=== PATIENT | male | born 1965 | race Hispanic/Latino ===

== ENCOUNTER 2018-08-10 08:38 | Inpatient (IN) | payer OTHER ==
[~2018-08-10] VITALS: Ht 167.6 cm; Wt 150.8 kg
[~2018-08-10 08:38] MED LIST: AMOXIL 875 MG875 MG PO; AUGMENTIN 875 M1 TAB PO; DELTASONE20 MG PO; DOXYCYCLINE HY100 M2 PO; FLEXERIL10 MG PO; HYDROXYZINE HCL50 M1 PO; MOTRIN 600 MG600 MG PO; MOTRIN 800MG T800 MG PO; PERCOCET 325 MG1 TA2 PO; TRAMADOL50 MG PO; ULTRAM(MONOGRAP50 MG PO; VICODIN HP 3001 TAB PO
--- NOTE | 2018-08-10 09:02 | CT SCAN REPORT ---
EXAMINATION: CT HEAD WITHOUT CONTRAST CLINICAL INFORMATION: Weakness. Facial droop. Concern for stroke. COMPARISON: 06/11/2013. TECHNIQUE: Contiguous helical images of the brain were obtained without IV contrast. Multiplanar reconstructions were performed. DLP: 646 mGy-cm. FINDINGS: There are no pathologic extra-axial fluid collections. The lateral, third, fourth ventricles are nondilated and concordant with the appearance of the sulci. There is no evidence for acute intraparenchymal hemorrhage or infarct. There is neither mass nor mass effect. There is no shift of midline structures. The paranasal sinuses and mastoid air cells are clear. There are no osseous lesions. IMPRESSION: No evidence for acute intracranial injury. The aforementioned was communicated to Dr. Raymundo at 0858 hours.
[2018-08-10 09:14] LABS: ABSOLUTE BASOPHIL COUNT 0 /CUMM (0.0-0.2); ABSOLUTE EOSINOPHIL COUNT 0 /CUMM (0.0-0.7); ABSOLUTE GRANULOCYTE CT 5.7 /CUMM (1.4-6.5); ABSOLUTE LYMPH COUNT 1.3 /CUMM (1.2-3.4); ABSOLUTE MONOCYTE COUNT 0.4 /CUMM (0.10-0.60); BASOPHIL % 0.1 % (0.0-2.0); EOSINOPHIL % 0.5 % (0-5); GRANULOCYTE % 76.5 % (42.2-75.2); HEMATOCRIT 44.4 % (42-52); MEAN CORPUSCULAR HGB 29.2 PG (27.0-31.0); MEAN CORPUSCULAR HGB CONC 33.1 G/DL (33.0-37.0); MEAN CORPUSCULAR VOLUME 88.2 FL (80.0-94.0); MEAN PLATELET VOLUME 9.3 FL (7.4-10.4); PLATELET COUNT 249 /CUMM (130-400); RBC DISTRIBUTION WIDTH 13.3 % (11.5-14.5); RED BLOOD CELL CT 5.04 /CUMM (4.70-6.10); WHITE BLOOD CELL COUNT 7.4 /CUMM (4.8-10.8)
--- NOTE | 2018-08-10 09:14 | ED GENERAL ADULT ---
See Addendum History of Present Illness General Chief Complaint: Neuro Symptoms/ Deficit Stated Complaint: BIBA NEURO DEFICITS Source: patient, EMS Exam Limitations: clinical condition Vital Signs & Intake/Output Vital Signs & Intake/Output Vital Signs Date Time Temp Pulse Resp B/P B/P Pulse O2 O2 Flow FiO2 Mean Ox Delivery Rate 08/10 947 97.0 86 18 127/65 99 Room Air 08/10 0902 100 Nasal 2.0L Cannula 08/10 0855 97.7 118 18 120/58 98 Room Air Allergies Coded Allergies: NO KNOWN ALLERGIES (01/21/16) Reconcile Medications Doxycycline Hyclate 100 MG CAPSULE 1 CAP PO BID TICK BITE Triage Note: 53 Y/O MALE BIBA FROM HOME, ON STROKE ALERT. PER EMS, PT WAS LAST SEEN "NORMAL" AT 0300; WENT TO [employer] AT ? 0500 AND "WAS NORMAL". GOT HOME AND CALLED 911 DUE TO SLURRED SPEECH AND R SIDED FACIAL DROOP. PRE [facility] FINGERSTICK 116. ARRIVES IN CT SCAN WITH SLURRED SPEECH STILL NOTED. SLIGHT FACIAL DROOP. ABLE TO MOVE ALL EXTREMITIES AND RESIST GRAVITY. ONLY C/O PAIN. ADMITS TO ETOH AND MARIJUANA USE LAST EVENING, BREATHALIZED AT 0.035. MD REMAINS AT BEDSIDE Triage Nurses Notes Reviewed? yes HPI: 53-year-old male presents via EMS for right-sided weakness and difficulty speaking. Less sometime well was 5 AM this morning when he went to [employer]. Daughter found him at 7 AM with aforementioned complaints and called EMS. Negative history of spinal or intracranial surgery. Does not take anticoagulants. Past History Travel History Traveled to [place] past 21 day No Medical History Any Pertinent Medical History? see below for history Neurological: NONE EENT: NONE Cardiovascular: ENLARGED HEART RIGHT BBB Respiratory: NONE Gastrointestinal: NONE Hepatic: NONE Renal: NONE Musculoskeletal: NONE Psychiatric: NONE Endocrine: NONE Blood Disorders: NONE Cancer(s): NONE LABORATORY VETERINARIAN/Reproductive: NONE Surgical History Surgical History: non-contributory Psychosocial History What is your primary language Angolan Tobacco Use: Quit >30 days ago Family History Hx Contributory? No Review of Systems Review of Systems Constitutional: Reports: no symptoms, see HPI. EENTM: Reports: no symptoms. Respiratory: Reports: no symptoms. Cardiovascular: Reports: no symptoms. GI: Reports: no symptoms. Genitourinary: Reports: no symptoms. Musculoskeletal: Reports: no symptoms. Skin: Reports: no symptoms. Neurological/Psychological: Reports: no symptoms. Hematologic/Endocrine: Reports: no symptoms. Immunologic/Allergic: Reports: no symptoms. All Other Systems: Reviewed and Negative Physical Exam Physical Exam General Appearance: no apparent distress Comments: Gen.: Well-nourished, well-developed, no acute respiratory distress. Head: Normocephalic, atraumatic. Eyes: Normal inspection bilaterally, PERRLA, EOMI Ears: Normal inspection bilaterally Nose: Normal inspection Throat/mouth : Moist mucosa Neck: Supple, full range of motion, no goiter, equal carotid pulses, no carotid bruits Heart: Regular rate and rhythm, no murmurs rubs or gallops Lungs: Clear to auscultation bilaterally with normal air entry Chest: Nontender Back: Normal range of motion Abdomen: Soft, nontender, nondistended, normal bowel sounds Extremities: Normal range of motion grossly, equal radial pulses, no cyanosis clubbing or edema Neurologic: Right lower facial droop with intact forehead wrinkling, positive for aphasia and dysarthria, negative cerebellar signs, intact sensation, intact deep tendon reflexes and muscle strength that is symmetric. Skin: warm and dry Psychiatric: Calm, cooperative Core Measures ACS in differential dx? No CVA/TIA Diagnosis: Yes NIH Stroke Scale (24 Hours) NIH Stroke Scale (24 Hours) Response Value Level of Consciousness alert 0 LOC Questions answers one correctly 1 LOC Commands obeys both correctly 0 Best Gaze normal 0 Visual Das no visual loss 0 Facial Paresis minor 1 Motor Arm - Left no drift 0 Motor Arm - Right no drift 0 Motor Leg - Left no drift 0 Motor Leg - Right no drift 0 Limb Ataxia no ataxia 0 Sensory normal 0 Best Language mild to moderate aphasia 1 Dysarthria mild/mod slurring words 1 Extinction and Inattention no neglect 0 Total 4 Date Last Known Well: 08/10/18 Time Last Known Well: 0500 tPA Risk/Benefit discussion I have discussed the risks, benefits, and alternatives of Alteplase treatment including: - If given promptly, can resolve or have major improvement in stroke symptoms. - Bleeding (hemorrhage) is the most common risk that can occur. - Bleeding may occur into the brain and cause~computing systems mechanic serious disability~ including - this is rare, affecting about 1% of patients. - Alternative treatments with proven benefit for patients with stroke include aspirin and care in a specialized unit where staff members pay careful attention to a variety of basic aspects of care. tPA given? No Reason tPA not given Medication Refused Sepsis Present: No Sepsis Focused Exam Completed? No Progress Differential Diagnoses I considered the following diagnoses in my evaluation of the patient: CVA versus TIA Plan of Care: Orders Procedure Date/time Status Nothing by Mouth 08/10 L Active Patient Data 08/10 1023 Active Add-on Test (ER Only) 08/10 1002 Active URINE DRUGS OF ABUSE 08/10 0942 Active Add-on Test (ER Only) 08/10 0911 Active TROPONIN LEVEL 08/10 901 Complete ETHANOL 08/[address] NECK ANGIOGRAM 08/[address] HEAD ANGIOGRAM 08/10 901 Active Saline Lock 08/10 840 Active URINALYSIS 08/10 840 Active PARTIAL THROMBOPLASTIN TIME 08/10 840 Complete PROTHROMBIN TIME 08/10 08 Complete COMPREHENSIVE METABOLIC PANEL 08/10 840 Complete CBC WITHOUT DIFFERENTIAL 08/10 840 Complete EKG 08/10 840 Active Current Medications Sig/Kevin Start time Last Medication Dose Stop Time Status Admin Alteplase, 0 ONCE ONE 08/10 900 UNVr Recombinant 08/10 901 (Activase 100 MG Inj) Potassium Chloride 20 MEQ .Q6H40M 08/10 900 UNVr (KCl 20MEQ in D5W NS 1000ML) Dextrose/Sodium 1,000 ML Chloride (D5-Normal Saline) Laboratory Tests 08/10/18 09: Anion Gap 13, Estimated GFR > 60, BUN/Creatinine Ratio 14.0, Glucose 156 H, Calcium 9.4, Total Bilirubin 0.7, AST 47, ALT 58, Alkaline Phosphatase 36, Troponin I < 0.01, Total Protein 7.1, Albumin 4.2, Globulin 2.9, Albumin/ Globulin Ratio 1.4, PT 13.1 H, INR 1.20 H, APTT 37, CBC w Diff NO MAN DIFF REQ , RBC 5.04, MCV 88.2, MCH 29.2, MCHC 33.1, RDW 13.3, MPV 9.3, Gran % 76.5 H, Lymphocytes % 17.3 L, Monocytes % 5.6, Eosinophils % 0.5, Basophils % 0.1, Absolute Granulocytes 5.7, Absolute Lymphocytes 1.3, Absolute Monocytes 0.4, Absolute Eosinophils 0, Absolute Basophils 0, Serum Alcohol 42.0 Initial ED EKG: Regular rhythm of 89 with LBBB. Normal axis. Discordance present. Sgarbossa criteria negative. No prior ECG for comparison. Comments: Spoke with the patient regarding TPA given risk and benefits. Patient declined tPA at this time stating that he thinks it is due to him drinking some alcohol last night. Breathalyzer was 0.036. 0945: Aphasia improvement. Departure Departure Disposition: STILL A PATIENT Condition: Stable Clinical Impression Primary Impression: Aphasia Secondary Impressions: Facial droop, LBBB (left bundle branch block) Referrals: Lindsay Alexandre APRN (PCP/Family) Departure Forms: Customer Survey General Discharge Information Critical Care Note Critical Care Note Critical Care Time: 30-74 min
[2018-08-10 09:28] LABS: PT 13.1 SEC (9.4-12.5); PTT 37 SEC (25-37)
--- NOTE | 2018-08-10 10:09 | RADIOLOGY REPORT ---
EXAMINATION: CHEST 1 VIEW CLINICAL INFORMATION: Weakness, facial droop. COMPARISON: 03/15/2015. TECHNIQUE: An AP view of the chest is provided. FINDINGS: The cardiac silhouette is prominent, though stable. The mediastinal and hilar contours are unremarkable. There are neither pleural effusions nor pneumothoraces. There are no consolidations. The osseous structures are stable. IMPRESSION: No evidence for acute disease.
--- NOTE | 2018-08-10 10:31 | CT SCAN REPORT ---
EXAMINATION: CT ANGIOGRAM OF THE HEAD CT ANGIOGRAM OF THE NECK CLINICAL INFORMATION: Aphasia and dysarthria. Right facial droop. COMPARISON: CT scan of the head earlier 08/10/2018. TECHNIQUE: Test bolus series followed by intravenous administration 90 mL of Optiray 320. Helical imaging was performed in the axial plane from the mediastinum to the skull vertex. A post contrast CT head was obtained. The degree of stenosis is based off NASCET criteria. The data was processed at the geodetic surveyor technologist workstation for generation of MIP images. Three-dimensional volume rendered reformatted images were also generated at an offline 3-D workstation. Imaging is suboptimal due to patient body habitus and motion. DLP: 1932.3 mGy-cm FINDINGS: CT Head: There is no evidence of acute intracranial hemorrhage or territorial infarction. No abnormal mass-effect or midline shift is seen. Sanchez to white matter differentiation is well preserved. No extra-axial fluid collections are identified. There is no abnormal enhancement. The ventricles are normal in size. There is no abnormal attenuation within the brain parenchyma. The osseous structures and soft tissues are normal. The mastoid air cells and visualized portions of the paranasal sinuses are well-aerated. CTA Neck: There is a common origin of the left common carotid and brachiocephalic arteries, a normal variant. The great vessels of the neck are widely patent. The subclavian arteries appear normal bilaterally. The common carotid arteries have normal caliber. The carotid bifurcations bilaterally appear normal. The internal carotid arteries in the neck bilaterally have uniform and normal caliber. The origins of both vertebral arteries are well seen and appear normal. Both vertebral arteries are widely patent and demonstrate good opacification throughout their cervical course. The left vertebral artery is slightly dominant. Nonvascular: There is no cervical lymphadenopathy. The thyroid gland appears normal. Accounting for artifact, the visualized upper lung zones are well-aerated. There are mild spondylitic changes in the cervical spine. Assessment of the cervical spine caudad to the level of C5 is suboptimal due to extensive beam hardening artifact from the patient's body habitus. The left mandibular third molar tooth is horizontally unerupted, but does not appear to be impacted. CTA Head: In the anterior circulation, the distal internal carotid arteries within the neck appear normal. The intracranial internal carotid arteries and their bifurcations appear normal. The M1 segment of the left middle cerebral artery is widely patent. There is mild irregularity of the distal sylvian left middle cerebral artery, but no occlusion is demonstrated. The right middle and bilateral anterior cerebral arteries demonstrate normal caliber with no evidence of focal stenosis, aneurysm or vascular malformation. The anterior communicating artery is normal. In the posterior circulation, the left vertebral artery is dominant. The vertebral arteries intradurally have normal caliber. The basilar artery appears normal. The posterior cerebral arteries have normal caliber. The venous sinuses opacify normally. IMPRESSION: 1. There are no acute bleeds or territorial infarcts. There are no masses or areas of abnormal enhancement. 2. CTA of the neck is unremarkable. 3. There appears to be mild irregularity of the distal sylvian branch of the left multiple cerebral artery, without vessel occlusion. 4. This critical result was discussed with Dorian Raymundo by telephone on 08/10/2018 at 10:15 AM and it was ascertained that the content and urgency of the report was understood at the time of direct communication.
--- NOTE | 2018-08-10 10:36 | History & Physical ---
Darian Velasco MDapna 08/10/18 1036: General Information and HPI MD Statement: I have seen and personally examined THERESA KATZ and documented this H&P. The patient is a 53 year old M who presented with a patient stated chief complaint of [right sided weakness and slurring of speech]. Source of Information: patient Exam Limitations: no limitations History of Present Illness: 53-year-old gentleman with no past medical history alcohol use for the past 2 months was brought in by EMS with complaints of right upper arm weakness with slurring of speech. Apparently patient was in usual state of health until Sunday. 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 He was unable to sleep. At around 5:00 AM he went to [employer] and had croissant and coffee and came home. He during that time he did not have any weakness or regurgitation of food. When he went to the bathroom, he felt that his right arm felt very weak and unable to get words out of his mouth. He managed to go to his living room and sat on the couch. He still felt that he was having slurring of speech and hence he signaled his daughter about the same symptoms. Immediately his came by and found him aphasic and unable to use the right arm and hence called EMS. Stroke alert was called and the EMS TECH found that he had a right angle of mouth deviation. Patient came to [place] [facility] and found that he did not have any more numbness/weakness. He was able to articulate and use his right arm. CAT scan was done which was negative for any bleed and since he came within the TPA window he was offered TPA but patient refused given the side effects and felt that was also to be secondary due to his alcohol use. Patient has never smoked cigarettes or used alcohol in the past. But he started drinking beer 3-4 at least 4 times a week for the past 2 months due to stress both at work and home. He is also trying to cut down on his calories and do physical activity to help with this weight loss. Otherwise patient follows with his primary care physician which she saw her 7 months ago for routine blood work. During that time he found to have elevated cholesterol but was never prescribed any medication. He also saw Dr. Mccain is a routine follow-up for his EKG finding of left bundle branch block. Allergies/Medications Allergies: Coded Allergies: NO KNOWN ALLERGIES (01/21/16) Home Med list Doxycycline Hyclate 100 MG CAPSULE 1 CAP PO BID TICK BITE Compliance With Home Meds: GOOD Past History Travel History Traveled to [place] past 21 day No Medical History Neurological: NONE EENT: NONE Cardiovascular: ENLARGED HEART RIGHT BBB Respiratory: NONE Gastrointestinal: NONE Hepatic: NONE Renal: NONE Musculoskeletal: NONE Psychiatric: NONE Endocrine: NONE Blood Disorders: NONE Cancer(s): NONE MANAGED CARE PROVIDER/Reproductive: NONE Surgical History Surgical History: non-contributory Past Family/Social History Family History Relations & Conditions if any Relation not specified for: *No pertinent family history Psychosocial History Where do you live? Home Who Do You Live With? spouse Services at Home: None Primary Language: Swedish Smoking Status: Never Smoked ETOH Use: heavy use Functional Ability ADLs Independent: dressing, eating, toileting, bathing. Ambulation: independent IADLs Independent: shopping, housework, finances, food prep, telephone, transportation , medication admin. Review of Systems Review of Systems Constitutional: Reports: no symptoms. Cardiovascular: Reports: no symptoms. Respiratory: Reports: no symptoms. GI: Reports: no symptoms. Genitourinary: Reports: no symptoms. Musculoskeletal: Reports: no symptoms. Skin: Reports: no symptoms. Neurological/Psychological: Reports: numbness, paresthesia (weakness rt arm). Exam & Diagnostic Data Last 24 Hrs of Vital Signs/I&O Vital Signs Date Time Temp Pulse Resp B/P B/P Pulse O2 O2 Flow FiO2 Mean Ox Delivery Rate 08/10 1135 98.2 82 18 136/70 98 08/10 1035 83 16 127/58 93 Nasal 2.0L Cannula 08/10 0947 97.0 86 18 127/65 99 Room Air 08/10 0902 100 Nasal 2.0L Cannula 08/10 0855 97.7 118 18 120/58 98 Room Air Intake & Output 08/10 1600 08/10 0800 08/10 0000 Intake Total Output Total Balance Patient 336 lb Weight Weight Bed scale Measurement Method Physical Exam General Appearance Alert, Oriented X3, Cooperative, No Acute Distress Cardiovascular Regular Rate, Normal S1, Normal S2, No Murmurs Lungs Clear to Auscultation Abdomen Soft, No Tenderness, No Hepatospenomegaly Neurological Normal Speech, Strength at 5/5 X4 Ext, Normal Tone, Sensation Intact, Cranial Nerves 3-12 NL Extremities No Cyanosis, No Edema, Normal Pulses Vascular Normal Pulses Last 24 Hrs of Labs/Robert: Laboratory Tests 08/10/18 1135: Methadone Screen Pending, Barbiturate Screen Pending, Ur Phencyclidine Scrn Pending, Amphetamines Screen Pending, U Benzodiazepines Scrn Pending, Urine Cocaine Screen Pending, Urine Cannabis Screen Pending, Urine Color Pending, Urine Clarity Pending, Urine pH Pending, Ur Specific [place] Pending, Urine Protein Pending, Urine Ketones Pending, Urine Nitrite Pending, Urine Bilirubin Pending, Urine Urobilinogen Pending, Ur Leukocyte Esterase Pending, Ur Microscopic Pending, Urine Hemoglobin Pending, Urine Glucose Pending 08/10/18 1040: Troponin I < 0.01 08/10/18 0901: Anion Gap 13, Estimated GFR > 60, BUN/Creatinine Ratio 14.0, Glucose 156 H, Calcium 9.4, Total Bilirubin 0.7, AST 47, ALT 58, Alkaline Phosphatase 36, Troponin I < 0.01, Total Protein 7.1, Albumin 4.2, Globulin 2.9, Albumin/ Globulin Ratio 1.4, Triglycerides Pending, Cholesterol Pending, LDL Cholesterol, Calc Pending, HDL Cholesterol Pending, Cholesterol/HDL Ratio Pending, TSH Pending, Free T4 Pending, Total T3 Pending, PT 13.1 H, INR 1.20 H, APTT 37, CBC w Diff NO MAN DIFF REQ, RBC 5.04, MCV 88.2, MCH 29.2, MCHC 33.1, RDW 13.3, MPV 9.3, Gran % 76.5 H, Lymphocytes % 17.3 L, Monocytes % 5.6, Eosinophils % 0.5, Basophils % 0.1, Absolute Granulocytes 5.7, Absolute Lymphocytes 1.3, Absolute Monocytes 0.4, Absolute Eosinophils 0, Absolute Basophils 0, Serum Alcohol 42.0 Assessment/Plan Assessment: 53-year-old gentleman with past medical history alcohol abuse/marijuana use was brought in was brought into [facility] by EMS with complaints of slurring of speech and right-sided facial droop at around 5 AM. Vital signs Temperature 97, pulse rate 83, respiratory rate 16, blood pressure 127/58, Saturation 93 on 2 L of oxygen. Patient now on room air upon interview. Admission labs WBC 7.4, hemoglobin 14.7, platelet count 249, sodium 141, potassium 4.2, creatinine 1, glucose 156, total bilirubin 0.7, troponin 0 0.01, INR 1.20 Imaging Chest x-ray-no acute disease Noncontrast head CT No evidence for acute intracranial injury. Head CTA/neck CTA 1. There are no acute bleeds or territorial infarcts. There are no masses or areas of abnormal enhancement. 2. CTA of the neck is unremarkable. 3. There appears to be mild irregularity of the distal sylvian branch of the left multiple cerebral artery, without vessel occlusion. ED treatment Narco 0.4 mg IV, IV KCl 20 mEq Patient complaint of chest pain and suddenly passed out. Patient was given Narcan by the ED physician. A new set of EKG and troponins were sent. Patient refused alteplase despite understanding the risk and benefits. Assessment and plan 1. TIA * Admit in telemetry * Neuro check every 2 * Vitals every shift * Appreciate neurology follow-up * Aspirin 325 once followed by aspirin 81 daily * Atorvastatin 80 mg daily * Echocardiogram to look for any chronic left ventricular hypertrophy * Lipid panel, HbA1c, TSH * Unsure if he needs MRI of the head. We will consult with neurology. * Patient able to swallow water at bedside. We will given some diet. 2. Alcohol abuse * Most likely patient might have withdrawal symptoms. * We will put him on CIWA * Ativan 1 mg nightly as needed IV * Thiamine, folic acid p.o. 3. Morbid obesity * We will check lipid panel and HbA1c. * Advised balanced diet and if needed and nutrition consult as an outpatient. 4. EKG finding of left bundle branch block * Patient has a history of EKG showing left bundle branch block. * We will follow with 3 sets of troponin given his one episode of chest pressure. * At this point there is no need for any cardiology consult. Code-Full code Diet-heart healthy diet DVT prophylaxis-subcu Lovenox As Ranked By This Provider Problem List: 1. TIA (transient ischemic attack) Core Measures/Misc (08/05) Acute Coronary Syndrome ACS Diagnosis: No Congestive Heart Failure Congestive Heart Failure Diagnosis No Cerebrovascular Accident CVA/TIA Diagnosis: Yes NIH Stroke Scale: Total 0 Date Last Known Well: 08/10/18 Time Last Known Well: 0500 Symptom Start Date: 08/10/18 Symptom Start Time: 0500 tPA Risk/Benefit discussion I have discussed the risks, benefits, and alternatives of Alteplase treatment including: - If given promptly, can resolve or have major improvement in stroke symptoms. - Bleeding (hemorrhage) is the most common risk that can occur. - Bleeding may occur into the brain and cause~bed bug exterminator serious disability~ including - this is rare, affecting about 1% of patients. - Alternative treatments with proven benefit for patients with stroke include aspirin and care in a specialized unit where staff members pay careful attention to a variety of basic aspects of care. tPA given? No Reason tPA not ordered Medication Refused Swallow Evaluation Pass Current/Past Hx AFib/AFlutter No VTE (View Protocol) VTE Risk Factors Age>40 No Mechanical VTE Prophylaxis d/t Other No VTE Pharm Prophylaxis d/t Other Sepsis (View protocol) Sepsis Present: No If YES complete Sepsis Event Note If YES complete Sepsis Event Note [facility] 5678: Core Measures/Misc (08/05) Sepsis (View protocol) If YES complete Sepsis Event Note If YES complete Sepsis Event Note Attending MD Review Statement Attending Statement Attending MD Statement: examined this patient, discuss w/resident/PA/PAVING RAMMER, agreed w/resident/PA/PAVING RAMMER, discussed with family, reviewed EMR data (avail), discussed with nursing Attending Assessment/Plan: Mr. Katz is a 53-year-old man with hyperlipidemia who was sent to ED after having an episode of word finding difficulties and possible right upper extremity weakness. IN ED, pt refused tPA. Ultimately, his symptoms resolved spontaneously. Non smoker, no prior history of TIA or stroke. CT head negative. --cont to observe on tele --f/u baseline labs
--- NOTE | 2018-08-10 13:35 | Cons- Neurology ---
General Information and HPI Consulting Request Date of Consult: 08/10/18 Requested By: Boston Bustamante MD History of Present Illness: 53-year-old male with essentially negative past medical history apart from reported hyperlipidemia which is untreated, presented to the emergency department this morning following an episode of word finding difficulties and possible right upper extremity weakness. He presented in the window for TPA however refused this treatment. Ultimately, his symptoms resolved spontaneously. He denies prior history of TIA or stroke. He is a non-smoker. Allergies/Medications Allergies: Coded Allergies: NO KNOWN ALLERGIES (01/21/16) Home Med List: Doxycycline Hyclate 100 MG CAPSULE 1 CAP PO BID TICK BITE Review of Systems Review of Systems: negative for trauma, fever, chest pain, palpitations, vomiting, vertigo, joint inflammation or abnormal bleeding Past History Travel History Traveled to [place] past 21 day No Medical History Neurological: NONE EENT: NONE Cardiovascular: ENLARGED HEART RIGHT BBB Respiratory: NONE Gastrointestinal: NONE Hepatic: NONE Renal: NONE Musculoskeletal: NONE Psychiatric: NONE Endocrine: NONE Blood Disorders: NONE Cancer(s): NONE CENTRAL PROCESSING TECH/Reproductive: NONE Surgical History Surgical History: non-contributory Family History Relations & Conditions If Any: Relation not specified for: *No pertinent family history Psychosocial History Where Do You Live? Home Who Do You Live With? spouse Services at Home: None Primary Language: Gabonese Smoking Status: Never Smoked ETOH Use: heavy use Functional Ability ADLs Independent: dressing, eating, toileting, bathing. Ambulation: independent IADLs Independent: shopping, housework, finances, food prep, telephone, transportation , medication admin. Exam & Diagnostic Data Vital Signs and I&O Vital Signs Date Time Temp Pulse Resp B/P B/P Pulse O2 O2 Flow FiO2 Mean Ox Delivery Rate 08/10 1248 98.3 90 17 132/60 98 08/10 1135 98.2 82 18 136/70 98 08/10 1035 83 16 127/58 93 Nasal 2.0L Cannula 08/10 0947 97.0 86 18 127/65 99 Room Air 08/10 0902 100 Nasal 2.0L Cannula 08/10 0855 97.7 118 18 120/58 98 Room Air Intake & Output 08/10 1600 08/10 0800 08/10 0000 Intake Total Output Total Balance Patient 336 lb Weight Weight Bed scale Measurement Method Middle-aged male in no acute distress. Head was normocephalic and atraumatic. He was awake, alert and cooperative. He was able to follow simple commands. Speech was fluent. There was no anomia. Pupils were equal and reactive. Extraocular movements were full. There was no nystagmus. There was no field cut. Face was symmetric. Hearing was normal. Tongue was midline. The motor examination showed no drift of the upper extremities. There was no focal or lateralizing weakness. Deep tendon reflexes were symmetric. Plantar responses were flexor. Sensory examination was normal to light touch with double simultaneous stimulation. There was no ataxia on finger to nose testing. Gait was not evaluated. Assessment/Plan Assessment: Left hemispheric TIA. Obesity Reported hyperlipidemia CT and CTA negative Recommendations: Observe on telemetry ASA Lipid panel Atorvastatin Echocardiogram May be OOB Please call with any questions. Consult Acknowledgment - Thank you for your consult request.
[2018-08-10 13:50] VITALS: BP 138/84
--- NOTE | 2018-08-10 22:38 | Admission Certification ---
Admission Certification Certification Statement - As attending physician, I certify that at the time of - admission, based on clinical presentation, severity of - symptoms, need for further diagnostic testing and - therapeutic interventions, and risk of adverse outcomes - without in-hospital treatment, in my clinical assessment, - this patient requires an acute hospital stay for a minimum - of two nights or longer. I have also considered psychsocial - factors such as support system, advanced age, financial - issues, cognitive issues, and failed out-patient treatments, - past re-admission history, safety of patient, and lack of - compliance as applicable. Specific rationale supporting this admission is: TIA
[2018-08-10 23:14] VITALS: BP 138/78
[2018-08-11 06:45] VITALS: BP 125/60
--- NOTE | 2018-08-11 08:12 | PN- Housestaff ---
Rod WOLFE,Gaby 08/11/18 0811: Subjective Follow-up For: TIA Complaints: no complaints Subjective: Patient seen and examined at bedside no overnight events. Patient says he is working with a speech by trying to sing songs. He is eager to know when he will regain his strength back. He denies dizziness, weakness, chest pain, palpitation, fall. Review of Systems Constitutional: Reports: no symptoms. Objective Last 24 Hrs of Vital Signs/I&O Vital Signs Date Time Temp Pulse Resp B/P B/P Pulse O2 O2 Flow FiO2 Mean Ox Delivery Rate 08/11 0645 98.8 71 20 125/60 94 Room Air 08/11 0000 Nasal 2.0L Cannula 08/10 2314 98.2 67 16 138/78 92 Room Air 08/10 1400 97 Nasal 2.0L Cannula 08/10 1350 98.4 82 20 138/84 95 Nasal Cannula 08/10 1248 98.3 90 17 132/60 98 08/10 1135 98.2 82 18 136/70 98 08/10 1035 83 16 127/58 93 Nasal 2.0L Cannula 08/10 0947 97.0 86 18 127/65 99 Room Air 08/10 0902 100 Nasal 2.0L Cannula 08/10 0855 97.7 118 18 120/58 98 Room Air Intake & Output 08/11 1600 08/11 0800 08/11 0000 Intake Total 120 120 Output Total Balance 120 120 Intake, Oral 120 120 Patient 335 lb Weight Physical Exam General Appearance: Alert, Oriented X3, Cooperative, No Acute Distress Cardiovascular: Regular Rate, Normal S1, Normal S2, No Murmurs Lungs: Clear to Auscultation Abdomen: Soft, No Tenderness, No Hepatospenomegaly Neurological: Normal Speech, Strength at 5/5 X4 Ext, Normal Tone, Sensation Intact, Cranial Nerves 3-12 NL Other Physical Findings: Slow speech Current Medications: Current Medications Sig/Kevin Start time Last Medication Dose Route Stop Time Status Admin Acetaminophen 650 MG Q6P PRN 08/10 1230 AC 08/10 PO 1535 Alteplase, 0 ONCE ONE 08/10 900 DC Recombinant IV 08/10 0901 Aspirin 81 MG DAILY 08/11 900 AC PO Aspirin 0 .STK-MED ONE 08/10 1132 DC PO Aspirin 325 MG ONCE ONE 08/10 1115 DC PO 08/10 1116 Atorvastatin Calcium 80 MG 1700 08/10 1700 AC 08/10 PO 1535 Enoxaparin Sodium 40 MG DAILY 08/10 1744 AC 08/10 SC 2019 Folic Acid 1 MG DAILY 08/10 1218 AC 08/10 PO 1535 Furosemide 40 MG 7:30 AM, & 4:30 PM 08/11 0730 AC IV Hydromorphone HCl 0.5 MG Q4 PRN 08/10 1230 AC IV Lorazepam 0 Q1P PRN 08/10 1230 AC IV Metolazone 5 MG DAILY 08/11 0900 AC PO Naloxone HCl 0.4 MG ONCE ONE 08/10 1045 DC 08/10 IV 08/10 1046 1042 Naloxone HCl 0 .STK-MED ONE 08/10 1040 DC .ROUTE Nimodipine 60 MG Q4H 08/10 1215 DC PO Oxycodone HCl 5 MG Q6 PRN 08/10 1230 AC PO Potassium Chloride 20 MEQ .Q6H40M 08/10 0900 DC Dextrose/Sodium 1,000 ML IV Chloride Thiamine HCl 50 MG DAILY 08/10 1218 AC 08/10 PO 1535 Last 24 Hrs of Lab/Robert Results Last 24 Hrs of Labs/Mics: Laboratory Tests 08/11/18 0635: Sodium Pending, Potassium Pending, Chloride Pending, Carbon Dioxide Pending, Anion Gap Pending, BUN Pending, Creatinine Pending, BUN/Creatinine Ratio Pending , Magnesium Pending, CBC w Diff Pending, WBC Pending, RBC Pending, Hgb Pending, Hct Pending, MCV Pending, MCH Pending, MCHC Pending, RDW Pending, Plt Count Pending, MPV Pending 08/10/18 1940: Troponin I < 0.01 08/10/18 1135: Urine Opiates Screen < 100, Methadone Screen < 40, Barbiturate Screen < 60, Ur Phencyclidine Scrn < 6.00, Amphetamines Screen < 100, U Benzodiazepines Scrn < 85, Urine Cocaine Screen < 50, Urine Cannabis Screen 13.40, Urine Color STRAW, Urine Clarity CLEAR, Urine pH 6.0, Ur Specific O[place]e 1.010, Urine Protein NEG, Urine Ketones NEG, Urine Nitrite NEG, Urine Bilirubin NEG, Urine Urobilinogen 0.2, Ur Leukocyte Esterase NEG, Ur Microscopic EXAM NOT REQUIRED, Urine Hemoglobin NEG, Urine Glucose NEG 08/10/18 1040: Troponin I < 0.01 08/10/18 0901: Anion Gap 13, Estimated GFR > 60, BUN/Creatinine Ratio 14.0, Glucose 156 H, Hemoglobin A1c Pending, Calcium 9.4, Total Bilirubin 0.7, AST 47, ALT 58, Alkaline Phosphatase 36, Troponin I < 0.01, Total Protein 7.1, Albumin 4.2, Globulin 2.9, Albumin/Globulin Ratio 1.4, Triglycerides 138, Cholesterol 172, LDL Cholesterol, Calc 109, HDL Cholesterol 36 L, Cholesterol/HDL Ratio 5 H, TSH 1.060, Free T4 1.33, Total T3 1.17, PT 13.1 H, INR 1.20 H, APTT 37, CBC w Diff NO MAN DIFF REQ, RBC 5.04, MCV 88.2, MCH 29.2, MCHC 33.1, RDW 13.3, MPV 9.3 , Gran % 76.5 H, Lymphocytes % 17.3 L, Monocytes % 5.6, Eosinophils % 0.5, Basophils % 0.1, Absolute Granulocytes 5.7, Absolute Lymphocytes 1.3, Absolute Monocytes 0.4, Absolute Eosinophils 0, Absolute Basophils 0, Serum Alcohol 42.0 Assessment/Plan Assessment: 53-year-old gentleman with past medical history alcohol abuse/marijuana use was brought in was brought into [facility] by EMS with complaints of slurring of speech and right-sided facial droop. Assessment and plan 1. TIA * Continue telemetry * Neuro check every 2 * Vitals every shift * Appreciate neurology follow-up. * Continue aspirin 81 daily * Continue atorvastatin 80 mg daily * Echocardiogram to look for any chronic left ventricular hypertrophy * Lipid panel, TSH-normal * Follow-up HbA1c * PT/OT 2. Alcohol abuse * Watch for DVT. * CIWA-0 * Ativan 1 mg nightly as needed IV * Thiamine, folic acid p.o. 3. Morbid obesity * Advised diet control and regular exercise. * Lipid panel -normal. Follow-up HbA1c. * Advised balanced diet and if needed and nutrition consult as an outpatient. 4. EKG finding of left bundle branch block * Patient has a history of EKG showing left bundle branch block. * We will follow with 3 sets of troponin-negative * At this point there is no need for any cardiology consult. Problem List: 1. TIA (transient ischemic attack) Pain Ratin Pain Location: NONE Pain Goal: Remain pain free Pain Plan: TYLENOL Tomorrow's Labs & Rationales: CBC,BEP Robby WOLFE,Amir 08/11/18 1123: Attending MD Review Statement Attending Statement Attending MD Statement: examined this patient, discuss w/resident/PA/AMORTIZATION CLERK, agreed w/resident/PA/AMORTIZATION CLERK, reviewed EMR data (avail), discussed with nursing Attending Assessment/Plan: Pt was seen and evaluated. AAOx3, wants to go home. --appreciate Neuro eval, f/u ECHO results --rest of the plan as per resident's note
[2018-08-11 08:58] LABS: ABSOLUTE BASOPHIL COUNT 0 /CUMM (0.0-0.2); ABSOLUTE EOSINOPHIL COUNT 0.1 /CUMM (0.0-0.7); ABSOLUTE GRANULOCYTE CT 4.8 /CUMM (1.4-6.5); ABSOLUTE LYMPH COUNT 1.7 /CUMM (1.2-3.4); ABSOLUTE MONOCYTE COUNT 0.6 /CUMM (0.10-0.60); BASOPHIL % 0.4 % (0.0-2.0); EOSINOPHIL % 1.5 % (0-5); GRANULOCYTE % 66.8 % (42.2-75.2); HEMATOCRIT 45.5 % (42-52); MEAN CORPUSCULAR HGB 28.9 PG (27.0-31.0); MEAN CORPUSCULAR HGB CONC 32.8 G/DL (33.0-37.0); MEAN CORPUSCULAR VOLUME 88.3 FL (80.0-94.0); MEAN PLATELET VOLUME 10.2 FL (7.4-10.4); PLATELET COUNT 224 /CUMM (130-400); RBC DISTRIBUTION WIDTH 13.4 % (11.5-14.5); RED BLOOD CELL CT 5.15 /CUMM (4.70-6.10); WHITE BLOOD CELL COUNT 7.2 /CUMM (4.8-10.8)
[2018-08-11 14:21] VITALS: BP 102/62
--- NOTE | 2018-08-11 16:48 | ECHOCARDIOGRAM REPORT ---
THERESA BONE Age: 53 : 1965 Gender: M Exam Date: 08/11/2018 10:25 Exam Location: 1 [address] Ht (in): 67 Wt (lb): 340 BSA: 2.79 BP: 132 / 60 Ordering Physician: Gaby Velasco MD Referring Physician: Bryce Mccain MD, PhD Technologist: Agustin Massey [facility] Room Number: 175-01 Indications: Chest pain, unspecified Rhythm: Sinus Technical Quality: FINDINGS Left Ventricle Mild LV dysfunction, with global hypokinesis and LVEF estimated at 45%-50%. interventricular septal bounce likely due to LBBB. Normal LV diastolic function for age. Right Ventricle Normal size and function. Right Atrium Left Atrium mildly enlarged LA. Interatrial septum not well visualized. Mitral Valve MAC, trace mitral regurgitation. Aortic Valve Tricuspid aortic valve without sclerosis or stenosis. No aortict insufficiency. Tricuspid Valve trace tricuspid regurgitation. Pulmonic Valve Pericardium Epicardial fat without effusion. Great Vessels CONCLUSIONS Mild LV dysfunction, with global hypokinesis and LVEF estimated at 45%-50%. Interventricular septal bounce likely due to LBBB. Normal LV diastolic function for age. Mildly enlarged LA. MAC, trace mitral regurgitation. Trace tricuspid regurgitation. Epicardial fat without effusion. Paul House M.D. (Electronically Signed) Final Date: 11 August 2018 16:45 MEASUREMENTS (Male / Female) Normal Values 2D ECHO LV Diastolic Diameter PLAX 5.3 cm 4.2 - 5.9 / 3.9 - 5.3 cm LV Systolic Diameter PLAX 3.9 cm 2.1 - 4.0 cm LV Fractional Shortening PLAX 26.0 % 25 - 46 % LV Ejection Fraction 2D Teich 50.6 % IVS Diastolic Thickness 1.2 cm LVPW Diastolic Thickness 1.2 cm LV Relative Wall Thickness 0.4 LVOT Diameter 2.2 cm Aortic Root Diameter 3.5 cm LA Systolic Diameter LX 3.9 cm 3.0 - 4.0 / 2.7 - 3.8 cm LA Volume 73.0 cm 18 - 58 / 22 - 52 cm Ascending Aorta Diameter 3.5 cm DOPPLER AV Peak Velocity 101.0 cm/s AV Peak Gradient 4.1 mmHg AV Mean Velocity 84.2 cm/s AV Mean Gradient 3.0 mmHg AV Velocity Time Integral 20.0 cm LVOT Peak Velocity 73.0 cm/s LVOT Peak Gradient 2.1 mmHg LVOT Mean Velocity 53.8 cm/s LVOT Mean Gradient 1.0 mmHg LVOT Velocity Time Integral 15.3 cm LVOT Stroke Volume 58.2 cm AV Area Cont Eq vti 2.9 cm AV Area Cont Eq pk 2.7 cm MV Peak Velocity 84.6 cm/s MV Peak Gradient 2.9 mmHg MV Mean Velocity 71.4 cm/s MV Mean Gradient 2.0 mmHg Mitral E Point Velocity 74.2 cm/s Mitral A Point Velocity 55.5 cm/s Mitral E to A Ratio 1.3 MV PHT Velocity 73.2 cm/s MV Deceleration Stewart 362.0 cm/s MV Pressure Half Time 60.7 ms MV Area PHT 3.6 cm MV Deceleration Time 254.0 ms TV Peak E Velocity 43.2 cm/s TV Peak A Velocity 37.2 cm/s TV E to A Ratio 1.2 PV Peak Velocity 117.0 cm/s PV Peak Gradient 5.5 mmHg PV Mean Velocity 76.6 cm/s PV Mean Gradient 3.0 mmHg PV Velocity Time Integral 22.0 cm LV E' Lateral Velocity 8.5 cm/s Mitral E to LV E' Lateral Ratio 8.7 LV E' Septal Velocity 7.8 cm/s Mitral E to LV E' Septal Ratio 9.5
[2018-08-11 23:07] VITALS: BP 122/70
[2018-08-12 06:20] VITALS: BP 130/80
--- NOTE | 2018-08-12 07:37 | PN- Housestaff ---
Subjective Follow-up For: TIA Morbid Obesity Tele-Events Since Last Visit: Bradycardia overnight, lowest at HR 53 Subjective: Afebrile overnight. Patient is seen and examined this morning. Patient states he feels good today and has no complaints of weakness or numbness. Patient states the bigger Aspirin dosage is difficult for him to intake and would prefer the baby aspirin on a daily basis. Patient states he has not had any headaches, chest pain, tremors, shortness of breath, n/v, diarrhea, and constipation. Patient is otherwise in good health today. Review of Systems Constitutional: Reports: see HPI. Objective Last 24 Hrs of Vital Signs/I&O Vital Signs Date Time Temp Pulse Resp B/P B/P Pulse O2 O2 Flow FiO2 Mean Ox Delivery Rate 08/12 0620 98.3 73 12 130/80 93 Room Air 08/11 2307 98.0 49 18 122/70 91 Room Air 08/11 1421 98.1 69 20 102/62 95 Room Air Intake & Output 08/12 1600 08/12 0800 08/12 0000 Intake Total 400 400 Output Total Balance 400 400 Intake, Oral 400 400 Patient 342 lb Weight Physical Exam General Appearance: Alert, Oriented X3, Cooperative, No Acute Distress Skin: No Rashes, No Breakdown Skin Temp/Moisture Exam: Warm/Dry HEENT: Atraumatic Neck: Supple Cardiovascular: Regular Rate, Normal S1, Normal S2 Lungs: Clear to Auscultation Abdomen: Soft, No Tenderness Neurological: Normal Speech, right corner of mouth droop when smiling ; tongue midline; raises eyebrows equally b/l Extremities: No Cyanosis, Normal Pulses Assessment/Plan Assessment: 53-year-old gentleman with past medical history alcohol abuse/marijuana use was brought in was brought into [facility] by EMS with complaints of slurring of speech and right-sided facial droop. Assessment and plan 1. TIA * Continue telemetry * Neuro check every 2 * Vitals every shift * Appreciate neurology follow-up. * Continue aspirin 81 daily * Continue atorvastatin 80 mg daily * Echocardiogram to look for any chronic left ventricular hypertrophy * Lipid panel, TSH-normal * Follow-up HbA1c * PT/OT 2. Alcohol abuse * Watch for DVT. * CIWA-0 * Ativan 1 mg nightly as needed IV * Thiamine, folic acid p.o. 3. Morbid obesity * Advised diet control and regular exercise. * Lipid panel -normal. Follow-up HbA1c. * Advised balanced diet and if needed and nutrition consult as an outpatient. 4. EKG finding of left bundle branch block * Patient has a history of EKG showing left bundle branch block. * We will follow with 3 sets of troponin-negative * At this point there is no need for any cardiology consult. Problem List: 1. TIA (transient ischemic attack) Pain Ratin Pain Location: na Pain Goal: Remain pain free Pain Plan: na Tomorrow's Labs & Rationales: routine
[2018-08-12] MEDS ORDERED: ASPIRIN81 M4 PO ×2 (10:46→11:17)
[2018-08-12] MEDS ORDERED: ATORVASTATIN CA80 M1 PO ×2 (10:46→11:17)
--- NOTE | 2018-08-12 10:48 | Patient Discharge Instructions ---
Discharge Instructions General Discharge Information You were seen/treated for: TIA Watch for these problems: In case of dizziness, numbness, facial droop, weakness, inability to use her arms and legs please go to the nearest emergency room Special Instructions: Please follow-up with your primary care physician/neurologist within 1-2 weeks of discharge Diet Recommended Diet: Regular Activity Activity Self Limited: No Acute Coronary Syndrome Inclusion Criteria At DC or during hospital stay patient has or had the following: ACS DIAGNOSIS No Discharge Core Measures Meds if any: Prescribed or Continued at Discharge Meds if any: NOT Prescribed or Continued at Discharge Congestive Heart Failure Inclusion Criteria At DC or during hospital stay patient has or had the following: CHF DIAGNOSIS No Discharge Core Measures Meds if any: Prescribed or Continued at Discharge Meds if any: NOT Prescribed or Continued at Discharge Cerebrovascular accident Inclusion Criteria At DC or during hospital stay patient has or had the following: CVA/TIA Diagnosis Yes Discharge Core Measures Meds if any: Prescribed or Continued at Discharge Meds if any: NOT Prescribed or Continued at Discharge Venous thromboembolism Inclusion Criteria VTE Diagnosis No VTE Type NONE VTE Confirmed by (Test) NONE Discharge Core Measures - Per Current guidelines, there needs to be overlap - treatment for the first 5 days of Warfarin therapy. - If discharged on Warfarin prior to 5 days of - overlap therapy, the patient will need to be - assessed for post discharge needs including - *Post discharge parental anticoagulation - *Warfarin and/or parental anticoagulation education - *Follow up date to check INR post discharge At least 5 days overlap therapy as Inpatient No Meds if any: Prescribed or Continued at Discharge Note: Overlap Therapy is Warfarin and Anticoagulant Meds if any: NOT Prescribed or Continued at Discharge
--- NOTE | 2018-08-12 11:22 | Discharge Summary ---
Visit Information Visit Dates Admission Date: 08/10/18 Discharge Date: 08/12/18 Hospital Course Course Attending Physician: Emma Morrow MD Primary Care Physician: Lindsay Alexandre APRN Hospital Course: 53-year-old gentleman with no past medical history alcohol use for the past 2 months was brought into the emergency department with complaints of right upper arm weakness with slurring of speech. Apparently patient was in usual state of health until Sunday. 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 He was unable to sleep. At around 5:00 AM he went to [email or web address] and then came home. During that time he did not have any weakness or regurgitation of food. When he went to the bathroom, he felt that his right arm felt very weak and unable to get words out of his mouth. He managed to go to his living room and sit on the couch. He still felt that he was having slurring of speech and hence he signaled his daughter about the same symptoms. Immediately his came by and found him aphasic and unable to use the right arm and hence called EMS. Stroke alert was called and the EMS TECH found that he had a right angle of mouth deviation. Patient came to [facility] and found that he did not have any more numbness/weakness. He was able to articulate and use his right arm. CAT scan was done which was negative for any bleed and since he came within the TPA window he was offered TPA but patient refused given the side effects and felt that was also to be secondary due to his alcohol use. Patient has never smoked cigarettes or used alcohol in the past. But he started drinking beer 3-4 at least 4 times a week for the past 2 months due to stress both at work and home. He is also trying to cut down on his calories and do physical activity to help with this weight loss. Otherwise patient follows with his primary care physician which he states he saw Dr. Bettie HANSEN 7 months ago for routine blood work. During that time he was found to have elevated cholesterol but was never prescribed any medication. 1. Transient Ischemic Attack with history of alcohol use due to stress -Patient admitted to telemetry for monitoring of neurological status and [facility] protocol. Head CT showed no acute evidence of an intracranial injury. We followed up with a Head/Neck CTA which showed no acute bleeds or infacts. CIWA scoring for the patient had been negative throughout his hospitalization. Consulted Neurology and recommened to start on daily aspirin and Atorvastatin. Echocardiogram ordered which showed a LVEF approx. at 45-50% with mild LV dysfunction and global hypokinesis. Patient to follow up with PCP/Neurology as a close outpatient visit within 1-2 weeks from discharge. Patient subsequently discharged home with referral for outpatient speech therapy and recommendations to implement a weight loss regimen. Allergies: Coded Allergies: NO KNOWN ALLERGIES (01/21/16) Significant Procedures: Head CT- No evidence for acute intracranial injury. HEAD/NECK CTA - 1. There are no acute bleeds or territorial infarcts. There are no masses or areas of abnormal enhancement. 2. CTA of the neck is unremarkable. 3. There appears to be mild irregularity of the distal sylvian branch of the left multiple cerebral artery, without vessel occlusion. ECHO - Mild LV dysfunction, with global hypokinesis and LVEF estimated at 45%-50%. Interventricular septal bounce likely due to LBBB. Normal LV diastolic function for age. Mildly enlarged LA. MAC, trace mitral regurgitation. Trace tricuspid regurgitation. Epicardial fat without effusion. Disposition Summary Disposition Principal Diagnosis: TIA Additional Diagnosis: Hx. of Alcohol abuse Hx. Morbid Obesity Discharge Disposition: home or self care Discharge Instructions General Discharge Information Code Status: Full Code Patient's Diet: Limit dietary intake for weight loss measures Patient's Activity: Ad ashleigh Follow-Up Instructions/Appts: Please follow up with PCP within one week. Please continue to take your home medications. Medications at Discharge Discharge Medications: Stop taking the following medications: Doxycycline Hyclate (Doxycycline Hyclate) 100 MG CAPSULE ORAL TWICE DAILY Qty = 20 Start taking the following new medications: Atorvastatin Calcium (Atorvastatin Calcium) 80 MG TABLET 80 Milligram ORAL 5 PM Qty = 30 No Refills Instructions: . Comments: Last Taken:08/11/18 Time:5PM Aspirin (Aspirin*) 81 MG TAB.CHEW 81 Milligram ORAL DAILY Qty = 30 No Refills Instructions: . Comments: Last Taken:08/12/18 Time:9AM Copies To: Lindsay Alexandre APRN Attending MD Review Statement Documenting Attending: Emma Morrow MD
== END 2018-08-12 12:00 | DRG 47 ==
LOC: ERH 08:38 → ERHI 10:35 → 1NO 10:35 → ENRESERV 12:28 → ENTRNSPT 13:01 → EDTRNSPT 13:08 → EDTRNSPTSTS 13:08 → 1NO 13:21 → CMPTRNSPT 13:37 → 1NO 08-11 12:46 → ENPENDDIS 08-12 10:57 → 1NO 08-12 12:00
PROVIDERS: Emergency Medicine; Student in an Organized Health Care Education/Training Program
DX: G45.9 Transient cerebral ischemic attack, unspecified (principal); R29.810 Facial weakness; R47.01 Aphasia; R29.704 NIHSS score 4; I44.7 Left bundle-branch block, unspecified; F10.10 Alcohol abuse, uncomplicated; E66.01 Morbid (severe) obesity due to excess calories; E78.5 Hyperlipidemia, unspecified; F12.90 Cannabis use, unspecified, uncomplicated; Z68.43 Body mass index [BMI] 50.0-59.9, adult; Z91.14 Patient's other noncompliance with medication regimen
CPT/HCPCS: 1NP; 36592; 71045; 80307; 81003; 82436; 93005; 93010; 93306; 96374; 97112-GO; 97116-GO; 97161-GP; 97165-GO; G0480; J1650; J1940; J2310; J3490

== ENCOUNTER 2018-08-16 13:48 | Emergency (ER) | payer OTHER ==
[~2018-08-16 13:48] MED LIST changes: +ASPIRIN81 M4 PO; +ATORVASTATIN CA80 M1 PO
--- NOTE | 2018-08-16 14:48 | ED GENERAL ADULT ---
History of Present Illness General Chief Complaint: General Adult Stated Complaint: SOB/GENERAL WEAKNESS HX STROKE X5 DAYS AGO Source: patient Exam Limitations: no limitations Allergies Coded Allergies: NO KNOWN ALLERGIES (01/21/16) Reconcile Medications Aspirin (Aspirin*) 81 MG TAB.CHEW 81 MG PO DAILY HEART . Atorvastatin Calcium 80 MG TABLET 80 MG PO 1700 CHOLESTEROL . Triage Note: TRIAGE: PT TO ED WITH WEAKNESS AND TINGLING TO LIPS. WAS HERE A FEW DAYS AGO FOR CVA/TIA. REPORTS THAT YESTERDAY HE FELT GOOD, AND NOW HE FEELS LIKE HE DID BEFORE HE CAME IN LAST TIME WELL. ALSO FEELS HEAVINESS WITH HIS BREATHING. FEELS LIKE HIS SPEECH IS SLOWER WELL, AND DOES NOT FEEL STRONG IN HIS HANDS EITHER. Triage Nurses Notes Reviewed? yes HPI: The patient is a 53-year-old male with past medical history significant for hyperlipidemia and a TIA which happened 5 days ago, now he is back chief complaint of generalized body weakness and some tingling in his oral area that happened this morning. 5 days ago the patient had dysarthria, and weakness in the right upper extremity , came to ED was diagnosed with TIA, the symptoms resolved without any treatment. He was a started on aspirin which he is taking regularly, he also has hyperlipidemia for which he is taking statin. The patient reports that he has been feeling weak from 5 days ago which has worsened, he also has experienced tingling in his oral area this morning. He denies any dizziness, lightheadedness, numbness, tingling, weakness, or funny sensation in his upper or lower extremities. He does not report any gait instability, or loose of control of bladder or bowel movements. He also denies any change in his vision, change in hearing, ringing in ears. He reports that he has difficulty breathing while he is in sitting position. He mentions that he has to try hard to breathe in and out while he is sitting. He denies any difficulty of breathing while he is lying down or walking and doing activity. He denies any chest pain, chest compression, chest tightness, sweating, abdominal pain, nausea, vomiting, constipation, diarrhea, dysuria, frequency, or pain in any of the lower or upper extremities. Blood sugar with fingerstick was checked which was 88. (Josue WOLFE,[facility]) Vital Signs & Intake/Output Vital Signs & Intake/Output Vital Signs Date Time Temp Pulse Resp B/P B/P Pulse O2 O2 Flow FiO2 Mean Ox Delivery Rate 08/16 1824 97.6 73 18 144/83 98 Room Air 08/16 1607 98.3 62 18 141/71 97 Room Air 08/16 1458 96 Room Air Room Air 08/16 1358 98.1 63 18 116/81 93 Room Air ED Intake and Output 08/17 0000 08/16 1200 Intake Total 0 Output Total Balance 0 Intake, Oral 0 (Gallito Mccann DO) Past History Travel History Traveled to [place] past 21 day No Medical History Any Pertinent Medical History? 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 No (Gallito Mccann DO) Review of Systems Review of Systems Constitutional: Reports: see HPI. EENTM: Reports: see HPI. Respiratory: Reports: short of breath. Cardiovascular: Reports: see HPI. GI: Reports: no symptoms, see HPI. Genitourinary: Reports: no symptoms. Musculoskeletal: Reports: no symptoms. Skin: Reports: no symptoms. Neurological/Psychological: Reports: tingling, weakness. Hematologic/Endocrine: Reports: see HPI. Immunologic/Allergic: Reports: no symptoms. (Kilo Salas MD) Physical Exam Physical Exam General Appearance: well developed/nourished, no apparent distress, alert, awake , comfortable Head: atraumatic, normal appearance Eyes: Bilateral: normal appearance, PERRL, EOMI. Ears, Nose, Throat: normal pharynx, normal ENT inspection, hearing grossly normal Neck: normal inspection, supple, full range of motion, no midline tenderness Respiratory: normal breath sounds, chest non-tender, no respiratory distress Cardiovascular: regular rate/rhythm, normal peripheral pulses Peripheral Pulses: 2+ radial (R), 2+ radial (L), 2+ tibialis posterior (R), 2+ tibialis posterior ( L) Gastrointestinal: normal bowel sounds, soft, non-tender, no organomegaly (Obese) Back: normal range of motion, no vertebral tenderness Extremities: normal inspection, normal capillary refill, normal range of motion, no edema Neurologic/Psych: no motor/sensory deficits, awake, alert, oriented x 3, normal mood/affect, 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 No CVA/TIA Diagnosis: No Sepsis Present: No Sepsis Focused Exam Completed? No (Gallito Mccann DO) Progress Initial ED EKG: LBBB Repeat EKG: unchanged Comments: Blood sugar on admission was 88, the patient had tingling in his oral area this morning. We will repeat head CT scan to rule out any repeat TIA. (Josue WOLFE,[facility]) Differential Diagnoses I considered the following diagnoses in my evaluation of the patient: Plan of Care: Orders Procedure Date/time Status TROPONIN LEVEL 08/16 1656 Complete EKG 08/16 1656 Active Saline Lock 08/16 1451 Active TROPONIN LEVEL 08/16 1451 Complete D-DIMER 08/16 1451 Complete COMPREHENSIVE METABOLIC PANEL 08/16 1451 Complete CBC WITHOUT DIFFERENTIAL 08/16 1451 Complete B-TYPE NATRIURETIC PEP (BNP) 08/16 1451 Complete EKG 08/16 1403 Active Laboratory Tests 08/16/18 1703: Troponin I < 0.01 08/16/18 1506: Anion Gap 12, Estimated GFR > 60, BUN/Creatinine Ratio 14.5, Glucose 86, Calcium 9.5, Total Bilirubin 0.8, AST 48, ALT 79 H, Alkaline Phosphatase 39, Troponin I < 0.01, [id number]-[id number] Pept 22.3, Total Protein 7.3, Albumin 4.2, Globulin 3.1, Albumin/Globulin Ratio 1.4, D-Dimer High Sensitivty < 200, CBC w Diff NO MAN DIFF REQ, RBC 5.15, MCV 88.2, MCH 29.5, MCHC 33.5, RDW 13.3, MPV 9.9, Gran % 66.5, Lymphocytes % 24.9, Monocytes % 7.1, Eosinophils % 1.3, Basophils % 0.2, Absolute Granulocytes 6.0, Absolute Lymphocytes 2.2, Absolute Monocytes 0.6, Absolute Eosinophils 0.1, Absolute Basophils 0 (Gallito Mccann DO) Departure Departure Condition: Stable Referrals: Lindsay Alexandre APRN (PCP/Family) Departure Forms: Customer Survey General Discharge Information (Josue WOLFE,[facility]) Departure Disposition: HOME OR SELF CARE Clinical Impression Primary Impression: Weakness Comments 01/16/18 5:38pm I saw and personally evaluated the patient and I agree with the marketing research intern's evaluation. 53-year-old male recently admitted for TIA. He had CTA of head and neck and echocardiogram, placed on aspirin and Lipitor, he returns for perioral paresthesias and some heaviness in breathing, global weakness. No chest pain. 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 Vascular exam good equal bilateral radial pulses Chest x-ray is unchanged EKG is unchanged Head CT is negative Labs unremarkable Serial troponins are nondetectable Heart scores 3 low risk Assessment and plan Status post perioral paresthesias, global weakness I considered acute coronary syndrome serial troponins were negative and EKG was unchanged I considered TIA and CVA recent workup was negative and he is currently on aspirin and a statin he has a normal neurological exam I considered aortic dissection-no chest pain or back pain, his symptoms resolved in the ED , good equal radial pulses , no change in his chest x-ray, he had an echocardiogram this week that was without evidence of aortic dissection. I considered pulmonary [id number] is negative The patient will follow-up with his doctor this week or return to the emergency department if worse. (Gallito Mccann DO) Critical Care Note Critical Care Note Critical Care Time: non-applicable (Gallito Mccann DO)
--- NOTE | 2018-08-16 15:17 | RADIOLOGY REPORT ---
EXAMINATION: XR PORTABLE CHEST CLINICAL INFORMATION: Shortness of breath. COMPARISON: Chest x-ray 08/10/2018. TECHNIQUE: Portable 75 degrees semiupright frontal view of the chest was obtained. FINDINGS: The lungs are hypoexpanded bilaterally. Cardiac silhouette is prominent comment demonstrated on prior imaging. There is no focal consolidation. There are no definite pleural effusions, although the left costophrenic angle is not well demonstrated. There are no acute osseous findings. IMPRESSION: 1. Hypoexpanded lungs bilaterally. 2. There are no acute cardiopulmonary findings.
[2018-08-16 15:28] LABS: ABSOLUTE BASOPHIL COUNT 0 /CUMM (0.0-0.2); ABSOLUTE EOSINOPHIL COUNT 0.1 /CUMM (0.0-0.7); ABSOLUTE LYMPH COUNT 2.2 /CUMM (1.2-3.4); ABSOLUTE MONOCYTE COUNT 0.6 /CUMM (0.10-0.60); BASOPHIL % 0.2 % (0.0-2.0); EOSINOPHIL % 1.3 % (0-5); GRANULOCYTE % 66.5 % (42.2-75.2); HEMATOCRIT 45.4 % (42-52); MEAN CORPUSCULAR HGB 29.5 PG (27.0-31.0); MEAN CORPUSCULAR HGB CONC 33.5 G/DL (33.0-37.0); MEAN CORPUSCULAR VOLUME 88.2 FL (80.0-94.0); MEAN PLATELET VOLUME 9.9 FL (7.4-10.4); PLATELET COUNT 227 /CUMM (130-400); RBC DISTRIBUTION WIDTH 13.3 % (11.5-14.5); RED BLOOD CELL CT 5.15 /CUMM (4.70-6.10); WHITE BLOOD CELL COUNT 8.9 /CUMM (4.8-10.8)
--- NOTE | 2018-08-16 16:13 | CT SCAN REPORT ---
EXAMINATION: CT HEAD WITHOUT CONTRAST CLINICAL INFORMATION: Tingling in oral area. TIA. COMPARISON: CT scan of the head 08/10/2018. TECHNIQUE: Contiguous axial imaging was performed from the skull base to vertex without intravenous administration of contrast. DLP: 630.28 mGy-cm FINDINGS: There is no evidence of acute intracranial hemorrhage or territorial infarction. No abnormal mass effect or midline shift is seen. Sanchez to white matter differentiation is well preserved. No extra-axial fluid collections are identified. The ventricles are normal in size. There is no abnormal attenuation within the brain parenchyma. The osseous structures and soft tissues are normal. The mastoid air cells and visualized portions of the paranasal sinuses are well aerated. IMPRESSION: 1. There are no acute bleeds or territorial infarcts. No masses are demonstrated.
[2018-08-16 18:24] VITALS: BP 144/83
== END 2018-08-16 19:06 ==
LOC: ERH 13:48
PROVIDERS: Emergency Medicine
DX: R53.1 Weakness (principal); R20.2 Paresthesia of skin; R06.00 Dyspnea, unspecified; I44.7 Left bundle-branch block, unspecified; G45.9 Transient cerebral ischemic attack, unspecified; Z79.82 Long term (current) use of aspirin
CPT/HCPCS: 71045; 93005; 93010